=== PATIENT | female | born 1960 | race Caucasian/White ===

== ENCOUNTER 2022-06-26 14:39 | Emergency (ER) | payer MEDICAID ==
[~2022-06-26] VITALS: Ht 154.9 cm; Wt 62.0 kg
[2022-06-26 15:26] VITALS: BP 95/48
[2022-06-26] MEDS ORDERED: SODIUM CHLORIDE 0.9% 1,000 ML IV ONE (15:45)
== END 2022-06-26 17:32 | disposition left against medical advice (07) ==
LOC: EMS 14:43
DX: R06.02 Shortness of breath (principal); I95.9 Hypotension, unspecified; R06.00 Dyspnea, unspecified; Z87.891 Personal history of nicotine dependence; Z90.49 Acquired absence of other specified parts of digestive tract
CPT/HCPCS: 93005; 99281